=== PATIENT | female | born 1990 | race Two or more races ===

== ENCOUNTER 2017-11-16 13:01 | Outpatient (CLI) | END 2017-11-16 15:22 | disposition home or self-care (01) ==

== ENCOUNTER 2017-11-17 10:25 | Outpatient (CLI) | END 2017-11-17 15:00 | disposition home or self-care (01) ==

== ENCOUNTER 2017-12-17 09:51 | Inpatient (IN) | END 2017-12-20 16:17 | disposition home or self-care (01) | DRG 766 ==

== ENCOUNTER → 2017-12-21 | Emergency (ER) | END | disposition home or self-care (01) ==